=== PATIENT | female | born 1930 | race Caucasian/White ===

== ENCOUNTER 2018-08-29 16:23 | Emergency (ER) | payer MEDICARE, OTHER ==
[~2018-08-29] VITALS: Ht 162.6 cm; Wt 66.7 kg
[2018-08-29 16:23] VITALS: BP 187/87
== END 2018-08-29 17:59 | disposition home or self-care (01) ==
LOC: ER 16:32
DX: R42 Dizziness and giddiness (principal); E11.9 Type 2 diabetes mellitus without complications; I10 Essential (primary) hypertension; I25.2 Old myocardial infarction; Z88.0 Allergy status to penicillin; Z95.5 Presence of coronary angioplasty implant and graft

== ENCOUNTER 2018-09-08 16:24 | Inpatient (IN) | payer MEDICARE, OTHER ==
[~2018-09-08] VITALS: Ht 162.6 cm; Wt 65.3 kg
--- NOTE | 2018-09-08 16:36 | NUR ---
WEAKNESS X 1 WEEK, FEVER X 2 DAYS, SENT FROM DR BRUNO OFFICE FOR EVAL. SKIN WARM, DRY, INTACT. NO ACUTE DISTRESS NOTED. HOOKED TO MONITOR. AMILY AT BEDSIDE. READY FOR EVAL.
[2018-09-08] MEDS ORDERED: IV NS 0.9% 500 ML BAG IV ONE (17:00)
[2018-09-08 17:08] LABS: BASOPHILS # (AUTO) 0.1 /CMM (0.0-0.2); BASOPHILS % (AUTO) 0.6 % (0.0-2.0); EOSINOPHILS % (AUTO) 0.6 % (0.0-6.0); HEMATOCRIT 38 % (33-45); HEMOGLOBIN 12.6 g/dL (11.5-14.8); LYMPHOCYTES # (AUTO) 0.8 /CMM (0.8-4.8); LYMPHOCYTES % (AUTO) 6.1 % (20.0-44.0); MEAN CORPUSCULAR HGB CONC 33 g/dl (31.0-36.0); MEAN CORPUSCULAR VOLUME 90 fL (82-100); NEUTROPHILS # (AUTO) 10.7 /CMM (1.8-8.9); NEUTROPHILS % (AUTO) 84.7 % (43.0-81.0); PLATELET COUNT (AUTO) 271 /CMM (150-450); RED BLOOD CELL COUNT(AUTO) 4.22 MIL/uL (4.0-5.2); WHITE BLOOD COUNT (AUTO) 12.7 K/uL (4.3-11.0)
[2018-09-08 17:45] LABS: CALCIUM, SERUM 8.4 mg/dL (8.5-10.1); CARBON DIOXIDE 28 mmol/L (21-32); CHLORIDE 99 mmol/L (98-107); POTASSIUM 3.9 mmol/L (3.5-5.1); SODIUM SERUM 134 mmol/L (136-145)
[2018-09-08 17:46] LABS: BILIRUBIN,DIRECT 0.1 mg/dL (0.0-0.2); BILIRUBIN,TOTAL 0.3 mg/dL (0.2-1.0); CREATININE 1.3 mg/dL (0.6-1.3); UREA NITROGEN, BLOOD 13 mg/dL (7-18)
[2018-09-08 17:47] LABS: ALANINE AMINOTRANSFERASE 80 U/L (12-78); ALBUMIN 2.6 g/dL (3.4-5.0); ALKALINE PHOSPHATASE 321 U/L (46-116); ASPARTATE AMINOTRANSFERASE 32 U/L (15-37); TOTAL PROTEIN, SERUM 6.6 g/dL (6.4-8.2)
[2018-09-08 17:58] LABS: GLUCOSE 143 mg/dL (74-106)
--- NOTE | 2018-09-08 18:14 | NUR ---
URINE SENT TO STAT LAB
[2018-09-08 18:20] LABS: APPEARANCE,URINE Cloudy (CLEAR); BILIRUBIN,URINE Negative (NEGATIVE); BLOOD, URINE Moderate Ery/uL (NEGATIVE); COLOR,URINE Yellow (YELLOW); KETONES,URINE Negative (NEGATIVE); LEUKOCYTE ESTERASE ,URINE Small (NEGATIVE); NITRITE, URINE Positive (NEGATIVE); PROTEIN,URINE 30 mg/dl (NEGATIVE); UGLUCOSE Negative (NEGATIVE)
[2018-09-08] MEDS ORDERED: LORAZEPAM INJ 2 MG/ML VIAL ONE (18:23)
[2018-09-08] MEDS ORDERED: LORAZEPAM INJ 2 MG/ML VIAL IV ONE (18:30)
[2018-09-08 18:49] LABS: BACTERIA,URINE Many /HPF (None Seen); SQUAMOUS EPITHELIAL CELL,UR Few /HPF (None Seen); URINE AMORPHOUS URATE Few /HPF (None Seen); WBC,URINE 81-100 /HPF (0-3)
--- NOTE | 2018-09-08 19:00 | NUR ---
PT REFUSED CT AND ATIVAN. 1 MG WASTED IN OMNICELL, UNABLE TO WASTE SECOND MG IN OMNICELL. WASTE WITNESSED BY LIN BENITEZ.
[2018-09-08] MEDS ORDERED: CHOL200026 PO (19:01)
[2018-09-08] MEDS ORDERED: CYAN10009 PO (19:01)
[2018-09-08] MEDS ORDERED: GLIM1TAB PO (19:01)
[2018-09-08] MEDS ORDERED: FOLI1TAB16 PO (19:01)
[2018-09-08] MEDS ORDERED: LEVO75TA PO (19:01)
[2018-09-08] MEDS ORDERED: ASPI-1169 PO (19:01)
[2018-09-08] MEDS ORDERED: METO-357 PO (19:01)
[2018-09-08] MEDS ORDERED: CARV3.12 PO (19:01)
[2018-09-08] MEDS ORDERED: AMLO5TAB4 PO (19:01)
[2018-09-08] MEDS ORDERED: OLME20TA13 PO (19:01)
--- NOTE | 2018-09-08 19:08 | NUR ---
CALLED DIETARY TO REQUEST FOOD TRAY
--- NOTE | 2018-09-08 19:17 | NUR ---
FOOD TRAY PROVIDED TO PT
[2018-09-08] MEDS ORDERED: LEVOFLOXACIN 750 MG /D5W 150ML PIGGYBACK IV ONE (19:30)
--- NOTE | 2018-09-08 20:16 | NUR ---
REPORT GIVEN TO LIN SANCHEZ 115-2 TELE Addendum: 09/08/18 at 2040 by MAI LIN HURD
[2018-09-08] MEDS ORDERED: LEVOFLOXACIN 750 MG /D5W 150ML 150 ML IV ONE (20:22)
--- NOTE | 2018-09-08 20:33 | NUR ---
IV ABX WILL CONT TO INFUSE IN ELVIS
[2018-09-08 20:35] VITALS: BP 146/75
--- NOTE | 2018-09-08 20:39 | NUR ---
[facility]
--- NOTE | 2018-09-08 20:45 | NUR ---
DUCK OPERATOR NOTE PATIENT RECEIVED IN [facility] AT BEDSIDE. PATIENT MALAY AND MACEDONIAN SPEAKING. PATIENT DOES NOT UNDERSTAND JAPANESE. DAUGHTER TRANSLATING. PATIENT A/OX 4 WITH GENERALIZED WEAKNESS, PATIENT ABLE TO WALK TO BED WITH STANDBY ASSISTANCE. PATIENT DENIES PAIN, CHEST PAIN, SOB. LAC 18I G INFILTRATED IV REMOVED AND 22 [address] LFA [address]ED. IV ANTIBIOTIC INFUSING. PATIENT SR IN THE 80S ON THE MONITOR. PATIENT ORIENTED TO ROOM CALL LIGHT AT BEDSIDE. RN WILL CONTINUE TO MONITOR. MD NOTIFIED OF PATIENT ARRIVAL.
[2018-09-08 21:00] VITALS: BP 146/76
[2018-09-08] MEDS: ATORVASTATIN 40 MG TABLET PO SCH (21:08)
[2018-09-08] MEDS: AMLODIPINE BESYLATE 5 MG TABLET PO SCH (21:08)
[2018-09-08] MEDS ORDERED: IV NS 0.9% 1,000 ML BAG IV PRN (22:30)
[2018-09-08] MEDS ORDERED: ENOXAPARIN SODIUM 40 MG/0.4 ML DISP.SYRIN SQ SCH (22:30)
[2018-09-08] MEDS ORDERED: LOSARTAN POTASSIUM 25 MG TABLET PO PRN (22:30)
[2018-09-08] MEDS ORDERED: IV NS 0.9% 1,000 ML IV PRN (22:30)
[2018-09-08] MEDS ORDERED: METOPROLOL SUCCINATE 50 MG TAB.SR.24H PO PRN (22:30)
[2018-09-08] MEDS ORDERED: ONDANSETRON HCL/PF 4 MG/2 ML VIAL IV PRN (22:30)
[2018-09-08] MEDS ORDERED: DEXTROSE 50%-WATER 50 ML DISP.SYRIN IV PRN (23:30)
[2018-09-08 23:56] VITALS: BP 128/77
[2018-09-09] VITALS (7 sets, daily range): BP systolic 92–186; BP diastolic 53–83
[2018-09-09] MEDS: ENOXAPARIN SODIUM 30 MG/0.3 ML DISP.SYRIN SQ SCH (01:09)
[2018-09-09] MEDS ORDERED: LORAZEPAM INJ 2 MG/ML VIAL IV PRN (03:30)
[2018-09-09] MEDS: LEVOTHYROXINE SODIUM 75 MCG TABLET PO SCH (06:38)
[2018-09-09] MEDS: PANTOPRAZOLE 40 MG TABLET.DR PO SCH (06:38)
[2018-09-09] MEDS: BLOOD SUGAR DIAGNOSTIC 1 EACH STRIP IN SCH ×4 (06:38→22:09)
--- NOTE | 2018-09-09 06:56 | NUR ---
COOK SHORT ORDER NOTE NO ACUTE CHANGES THROUGHOUT THE NIGHT NO S/S OF DISTRESS. PATIENT BS 147 NO INSULIN GIVEN PT NPO D/T PROCEDURE. ENDORSED TO AM POC FOR DAVID.
--- NOTE | 2018-09-09 07:20 | NUR ---
RN OPENING NOTE RECEIVED PATIENT ASLEEP, BUT EASILY AROUSABLE. CYPRIOT/ARGENTINE SPEAKING ONLY. ON TELE MONITOR SR 80-90s. NPO AFTER BREAKFAST FOR US ABD/PELVIS LATER TODAY. WILL RESUME DIET AFTER. HAS A LEFT HAND #22 WITH NS RUNNING AT 50ML/HR. BED LOCKED AND IN LOWEST POSITON. CALL LIGHT WITHIN REACH. WILL CONTINUE TO MONITOR CLOSELY
--- NOTE | 2018-09-09 07:25 | NUR ---
SAP SECURITY ARCHITECT NOTE NO S.S OF DISTRESS. PATIENT DENIES CHEST PAIN/SOB. PATIENT NO LONGER FEBRILE. PATIENT STABLE. POC ENDORSED TO AM FOR DAVID. HR IN 80'S SR. SAFETY PRECAUTIONS IN PLACE
[2018-09-09 07:34] LABS: BASOPHILS % (AUTO) 0.2 % (0.0-2.0); HEMATOCRIT 35 % (33-45); HEMOGLOBIN 11.7 g/dL (11.5-14.8); LYMPHOCYTES # (AUTO) 0.4 /CMM (0.8-4.8); LYMPHOCYTES % (AUTO) 1.8 % (20.0-44.0); MEAN CORPUSCULAR HGB CONC 34 g/dl (31.0-36.0); MEAN CORPUSCULAR VOLUME 89 fL (82-100); MONOCYTES # (AUTO) 1.3 /CMM (0.1-1.30); MONOCYTES % (AUTO) 5.7 % (2.0-12.0); NEUTROPHILS # (AUTO) 21.1 /CMM (1.8-8.9); NEUTROPHILS % (AUTO) 92.3 % (43.0-81.0); PLATELET COUNT (AUTO) 210 /CMM (150-450); RED BLOOD CELL COUNT(AUTO) 3.88 MIL/uL (4.0-5.2); WHITE BLOOD COUNT (AUTO) 22.8 K/uL (4.3-11.0)
[2018-09-09 07:49] LABS: ALANINE AMINOTRANSFERASE 68 U/L (12-78); ALBUMIN 2.2 g/dL (3.4-5.0); ALKALINE PHOSPHATASE 294 U/L (46-116); ASPARTATE AMINOTRANSFERASE 30 U/L (15-37); BILIRUBIN,TOTAL 0.9 mg/dL (0.2-1.0); CALCIUM, SERUM 8.2 mg/dL (8.5-10.1); CARBON DIOXIDE 26 mmol/L (21-32); CHLORIDE 103 mmol/L (98-107); CREATININE 1.1 mg/dL (0.6-1.3); GLUCOSE 150 mg/dL (74-106); POTASSIUM 3.6 mmol/L (3.5-5.1); SODIUM SERUM 140 mmol/L (136-145); TOTAL PROTEIN, SERUM 5.9 g/dL (6.4-8.2); UREA NITROGEN, BLOOD 13 mg/dL (7-18)
[2018-09-09] MEDS: ASPIRIN 81 MG TAB.CHEW PO SCH (08:05)
[2018-09-09] MEDS: CARVEDILOL 3.125 MG TABLET PO SCH ×2 (08:05→16:53)
--- NOTE | 2018-09-09 08:06 | NUR ---
RN NOTE ASPIRIN AND COREG WERE NOT ADMINISTERED. PATIENT NPO BEFORE ULTRASOUND OF ABDOMEN/PELVIS. PATIENT'S BP: 117/59 HR: 78.
[2018-09-09] MEDS ORDERED: ENOXAPARIN SODIUM 40 MG/0.4 ML DISP.SYRIN SQ SCH (09:00)
--- NOTE | 2018-09-09 09:49 | NUR ---
RN NOTE US TECH CAME IN AT 0845. US OF ABDOMEN AND PELVIS WAS DONE. PATIENT ALERT AND ORIENTED. ORDERED BREAKFAST, CCHO AND 2G NA. FAMILY ON BEDSIDE
[2018-09-09] MEDS: INSULIN REGULAR, HUMAN 100 UNIT/ML 3 ML VIAL SQ PRN ×3 (12:58→22:29)
[2018-09-09] MEDS: SOD FERRIC GLUC 125 MG in IV NS 0.9% 100 ML IV SCH (14:17)
[2018-09-09] MEDS: AMLODIPINE BESYLATE 5 MG TABLET PO SCH (17:55)
--- NOTE | 2018-09-09 17:56 | NUR ---
RN NOTE DID NOT ADMINISTER COREG AT 1700 AND NORVASC AT 1800. PATIENT'S BLOOD PRESSURE IS BELOW THE BASELINE. FAMILY ON BEDSIDE AWARE, AND AGREED.
--- NOTE | 2018-09-09 18:53 | NUR ---
RN CLOSING NOTE PATIENT AWAKE AND ALERT, BOLIVIAN SPEAKING ONLY. NO FEVER DURING MY SHIFT. ALL NEEDS MET. STABLE. NO PAIN OR SOB. ON 3L NC. HAS LEFT HAND #22 SALINE LOCKED. BP MEDS NOT ADMINISTERED. WILL ENDORSE TO NOC SHIFT RN
--- NOTE | 2018-09-09 19:23 | NUR ---
CLINICIAN ONCOLOGY NOTE PATIENT REPORT GIVEN BEDSIDE. PATIENT A/O X4. PATIENT POLISH AND LIBERIAN SPEAKING. PATIENT HAS NO C/O DISTRESS OR DISCOMFORT. PATIENT ON 2L 02 NO S/S OF RESP DISTRESS. NO INCREASED WOB/SOB/ NOTED. PATIENT SR ON THE MONITOR. CALL LIGHT AT BEDSIDE. SAFETY PRECAUTIONS IN PLACE. RN WILL CONTINUE TO MONITOR.
[2018-09-09] MEDS: ACETAMINOPHEN 325 MG TABLET PO PRN (19:51)
[2018-09-09] MEDS ORDERED: LEVOFLOXACIN 750 MG /D5W 150ML 750 MG in PREMIX 1 EA IV SCH (20:00)
[2018-09-09] MEDS ORDERED: LEVOFLOXACIN 250 MG /D5W 50 ML 250 MG in PREMIX 1 EA IV SCH (20:00)
--- NOTE | 2018-09-09 20:44 | NUR ---
IT SOFTWARE DEVELOPER NOTE PATIENT NOTED TO BE FEBRILE 102.4. TYLENOL GIVEN AND COOLING MEASURES IN PLACE AND TEMP REASSESSED. TEMPERATURE REDUCED TO 99.9. PATIENT HYPERTENSIVE, AFTER USING BR TO URINATE BP DROPPED TO 156/75.
[2018-09-09] MEDS: ATORVASTATIN 40 MG TABLET PO SCH (22:09)
--- NOTE | 2018-09-09 22:19 | NUR ---
COMPOUNDER NOTE PATIENT RECEIVING NEURO CONSULT.
[2018-09-10] VITALS: BP 104/55
[2018-09-10] MEDS: ENOXAPARIN SODIUM 30 MG/0.3 ML DISP.SYRIN SQ SCH (00:44)
[2018-09-10 04:00] VITALS: BP 130/68
[2018-09-10] MEDS: BLOOD SUGAR DIAGNOSTIC 1 EACH STRIP IN SCH ×4 (06:30→21:26)
[2018-09-10] MEDS: PANTOPRAZOLE 40 MG TABLET.DR PO SCH (06:30)
[2018-09-10] MEDS: LEVOTHYROXINE SODIUM 75 MCG TABLET PO SCH (06:30)
[2018-09-10 07:47] LABS: BASOPHILS # (AUTO) 0.1 /CMM (0.0-0.2); BASOPHILS % (AUTO) 0.4 % (0.0-2.0); EOSINOPHILS % (AUTO) 0.8 % (0.0-6.0); HEMATOCRIT 35 % (33-45); HEMOGLOBIN 11.5 g/dL (11.5-14.8); LYMPHOCYTES # (AUTO) 0.7 /CMM (0.8-4.8); LYMPHOCYTES % (AUTO) 5.3 % (20.0-44.0); MEAN CORPUSCULAR HGB CONC 33 g/dl (31.0-36.0); MEAN CORPUSCULAR VOLUME 90 fL (82-100); MONOCYTES # (AUTO) 1.1 /CMM (0.1-1.30); MONOCYTES % (AUTO) 8.4 % (2.0-12.0); NEUTROPHILS # (AUTO) 11.2 /CMM (1.8-8.9); NEUTROPHILS % (AUTO) 85.1 % (43.0-81.0); PLATELET COUNT (AUTO) 197 /CMM (150-450); RED BLOOD CELL COUNT(AUTO) 3.85 MIL/uL (4.0-5.2); WHITE BLOOD COUNT (AUTO) 13.2 K/uL (4.3-11.0)
[2018-09-10 07:58] LABS: ALANINE AMINOTRANSFERASE 64 U/L (12-78); ALBUMIN 2.2 g/dL (3.4-5.0); ALKALINE PHOSPHATASE 272 U/L (46-116); ASPARTATE AMINOTRANSFERASE 34 U/L (15-37); BILIRUBIN,TOTAL 0.6 mg/dL (0.2-1.0); CALCIUM, SERUM 8.1 mg/dL (8.5-10.1); CARBON DIOXIDE 26 mmol/L (21-32); CHLORIDE 104 mmol/L (98-107); GLUCOSE 138 mg/dL (74-106); MAGNESIUM 2.1 mg/dL (1.8-2.4); PHOSPHORUS 2.5 mg/dL (2.5-4.9); POTASSIUM 3.8 mmol/L (3.5-5.1); SODIUM SERUM 139 mmol/L (136-145); TOTAL PROTEIN, SERUM 5.8 g/dL (6.4-8.2); UREA NITROGEN, BLOOD 13 mg/dL (7-18)
[2018-09-10 08:00] VITALS: BP 141/66
[2018-09-10] MEDS: ASPIRIN 81 MG TAB.CHEW PO SCH (08:44)
[2018-09-10] MEDS: CARVEDILOL 3.125 MG TABLET PO SCH ×2 (08:44→17:00)
--- NOTE | 2018-09-10 09:28 | NUR ---
RN NOTE PT REFUSED MRI BRAIN AND EEG TO BE DONE. BENEFITS EXPLAINED, PT STILL REFUSED, PT IS AFRAID OF MRI MACHINE. MD AT BEDSIDE AWARE. DAUGHTER AT BEDSIDE AWARE.
[2018-09-10 12:00] VITALS: BP 119/53
--- NOTE | 2018-09-10 12:08 | NUR ---
PATIENT IS REFUSING MRI, NURSE JAIME IS AWARE.
[2018-09-10] MEDS: INSULIN REGULAR, HUMAN 100 UNIT/ML 3 ML VIAL SQ PRN ×2 (12:44→21:34)
--- NOTE | 2018-09-10 14:52 | NUR ---
RN NOTE SPOKE WITH ADELAIDE AT [facility] [phone] DARLING'S REQUEST TO CHECK UR CX SENSITIVITY TO [facility], PER ADELAIDE THEY WILL DO THE TEST AND REPORT SHOULD BE DONE BY TOMORROW 09/10/18. WILL NOTIFY
[2018-09-10] MEDS: SOD FERRIC GLUC 125 MG in IV NS 0.9% 100 ML IV SCH (14:55)
[2018-09-10 16:00] VITALS: BP 107/71
[2018-09-10] MEDS: MEROPENEM 1 G in IV NS 0.9% 100 ML IV SCH (16:59)
[2018-09-10] MEDS: AMLODIPINE BESYLATE 5 MG TABLET PO SCH (17:31)
[2018-09-10] MEDS: ACETAMINOPHEN 325 MG TABLET PO PRN (17:33)
--- NOTE | 2018-09-10 19:35 | NUR ---
ON SITE SERVICES SPECIALIST OPENING NOTES Received patient A/O x4, Zimbabwean/Lao speaking only, registered nurse hh case manager used. Patient on O2 inhalation via NC @ 2LPM, no SOB/respiratory distress noted. On tele monitor with SR noted. Ambulatory with steady gait noted. Patient aferbile, continent, BRP. Patient denied discomfort at this time. Kept bed low and locked, siderail x2 up, call light within easy reach. Will continue to monitor accordingly.
[2018-09-10 20:00] VITALS: BP 101/59
[2018-09-10] MEDS: ATORVASTATIN 40 MG TABLET PO SCH (21:27)
[2018-09-11] VITALS: BP 142/70
[2018-09-11] MEDS: ACETAMINOPHEN 325 MG TABLET PO PRN ×2 (00:12→15:18)
[2018-09-11] MEDS: ENOXAPARIN SODIUM 30 MG/0.3 ML DISP.SYRIN SQ SCH (00:14)
[2018-09-11] MEDS: MEROPENEM 1 G in IV NS 0.9% 100 ML IV SCH (03:46)
[2018-09-11 04:00] VITALS: BP 140/63
--- NOTE | 2018-09-11 06:23 | NUR ---
COLLISION MECHANIC CLOSING NOTES Patient noted with uninterrupted sleep, still asleep at this time. On O2 inhalation via NC @ 2LPM, saturating well, no SOB/respiratory distress noted. All nursing needs attended. Kept clean, dry and comfortable with call light within easy reach. No new unusualities noted. Afebrile the whole shift. Endorsed to the next shift.
[2018-09-11] MEDS: BLOOD SUGAR DIAGNOSTIC 1 EACH STRIP IN SCH ×4 (06:42→21:15)
[2018-09-11] MEDS: INSULIN REGULAR, HUMAN 100 UNIT/ML 3 ML VIAL SQ PRN ×4 (06:45→21:32)
[2018-09-11 08:00] VITALS: BP 145/72
[2018-09-11] MEDS: CARVEDILOL 3.125 MG TABLET PO SCH ×2 (08:02→17:50)
[2018-09-11] MEDS: PANTOPRAZOLE 40 MG TABLET.DR PO SCH (08:02)
[2018-09-11] MEDS: ASPIRIN 81 MG TAB.CHEW PO SCH (08:02)
[2018-09-11] MEDS: LEVOTHYROXINE SODIUM 75 MCG TABLET PO SCH (08:02)
[2018-09-11 09:01] LABS: BASOPHILS # (AUTO) 0.1 /CMM (0.0-0.2); BASOPHILS % (AUTO) 0.4 % (0.0-2.0); EOSINOPHILS % (AUTO) 1.3 % (0.0-6.0); HEMATOCRIT 35 % (33-45); HEMOGLOBIN 11.5 g/dL (11.5-14.8); LYMPHOCYTES # (AUTO) 0.7 /CMM (0.8-4.8); LYMPHOCYTES % (AUTO) 5.2 % (20.0-44.0); MEAN CORPUSCULAR HGB CONC 33 g/dl (31.0-36.0); MEAN CORPUSCULAR VOLUME 90 fL (82-100); MONOCYTES # (AUTO) 1.1 /CMM (0.1-1.30); NEUTROPHILS # (AUTO) 11.6 /CMM (1.8-8.9); NEUTROPHILS % (AUTO) 85.1 % (43.0-81.0); PLATELET COUNT (AUTO) 240 /CMM (150-450); RED BLOOD CELL COUNT(AUTO) 3.86 MIL/uL (4.0-5.2); WHITE BLOOD COUNT (AUTO) 13.6 K/uL (4.3-11.0)
[2018-09-11 09:32] LABS: ALANINE AMINOTRANSFERASE 64 U/L (12-78); ALBUMIN 2.3 g/dL (3.4-5.0); ALKALINE PHOSPHATASE 271 U/L (46-116); ASPARTATE AMINOTRANSFERASE 29 U/L (15-37); BILIRUBIN,TOTAL 0.5 mg/dL (0.2-1.0); CALCIUM, SERUM 8.4 mg/dL (8.5-10.1); CARBON DIOXIDE 27 mmol/L (21-32); CHLORIDE 104 mmol/L (98-107); CREATININE 1.1 mg/dL (0.6-1.3); GLUCOSE 227 mg/dL (74-106); MAGNESIUM 2.2 mg/dL (1.8-2.4); PHOSPHORUS 2.6 mg/dL (2.5-4.9); POTASSIUM 3.9 mmol/L (3.5-5.1); SODIUM SERUM 138 mmol/L (136-145); TOTAL PROTEIN, SERUM 6.1 g/dL (6.4-8.2); UREA NITROGEN, BLOOD 13 mg/dL (7-18)
[2018-09-11] MEDS ORDERED: CEFTRIAXONE 1 G in IV D5W 50 ML IV SCH (14:00)
[2018-09-11] MEDS: SOD FERRIC GLUC 125 MG in IV NS 0.9% 100 ML IV SCH (14:51)
[2018-09-11] MEDS: CEFTRIAXONE 1 G in IV D5W 50 ML IV SCH (15:12)
[2018-09-11 16:00] VITALS: BP 127/62
[2018-09-11] MEDS: AMLODIPINE BESYLATE 5 MG TABLET PO SCH (17:49)
--- NOTE | 2018-09-11 19:40 | NUR ---
RN OPENING NOTES RECEIVED REPORT FROM DAYSHIFT RN. FOUND Pt AWAKE, RESTING IN BED. NO S/S OF ACUTE DISTRESS OR SOB NOTED. Pt IS A/OX4, PASHTO SPEAKING, CAN UNDERSTAND SOME PASHTO. NO C/O PAIN AT THIS TIME. Pt HAS BRP, IS AMB. IV ACCES ON [facility] #22G, SL. POSSIBLE D/C HOME TOMORROW. SAFETY MEASURES IN PLACE. BED LOW, LOCKED, HOB ELEVATED, SIDE RAILS UP, CALL LIGHT AND BEDSIDE TABLE WITHIN REACH. WILL CONTINUE TO MONITOR Pt's CONDITION AND SAFETY THROUGHOUT THE NIGHT.
[2018-09-11] MEDS ORDERED: CEFTRIAXONE 1 G VIAL IM SCH (21:00)
[2018-09-11] MEDS: ATORVASTATIN 40 MG TABLET PO SCH (21:16)
[2018-09-12] VITALS: BP 127/53
[2018-09-12] MEDS: ENOXAPARIN SODIUM 30 MG/0.3 ML DISP.SYRIN SQ SCH ×2 (00:45→23:42)
[2018-09-12] MEDS: CEFTRIAXONE 1 G in IV D5W 50 ML IV SCH ×2 (01:08→13:49)
--- NOTE | 2018-09-12 06:51 | NUR ---
RN CLOSING NOTES NO SIGNIFICANT CHANGES IN Pt's CONDITION. Pt REMAINS STABLE AT THIS TIME. NO S/S OF ACUTE DISTRESS OR SOB NOTED DURING THE NIGHT. Pt IS RESTING IN BED. RESPIRATIONS EVEN AND UNLABORED. SAFETY MEASURES IN PLACE. BED LOW, LOCKED, HOB ELEVATED, SIDE RAILS UP, CALL LIGHT AND BEDSIDE TABLE WITHIN REACH. WILL ENDORSE TO DAYSHIFT RN FOR Pt's DAVID.
--- NOTE | 2018-09-12 07:20 | NUR ---
RN OPENING NOTE RECEIVED PATIENT IN BED ASLEEP BUT EASILY AROUSABLE. MALAY SPEAKING ONLY. UNDERSTANDS BASIC SWEDISH. NO COMPLAINS OF ANY PAIN OR SOB. HAS A LEFT HAND #22 SALINE LOCKED. BED LOCKED AND IN LOWEST POSITION. CALL LIGHT WITHIN REACH. WILL CONTINUE TO MONITOR CLOSELY
[2018-09-12] MEDS: BLOOD SUGAR DIAGNOSTIC 1 EACH STRIP IN SCH ×4 (08:37→21:41)
[2018-09-12] MEDS: LEVOTHYROXINE SODIUM 75 MCG TABLET PO SCH (08:39)
[2018-09-12] MEDS: CARVEDILOL 3.125 MG TABLET PO SCH ×2 (08:39→17:12)
[2018-09-12] MEDS: ASPIRIN 81 MG TAB.CHEW PO SCH (08:39)
[2018-09-12] MEDS: PANTOPRAZOLE 40 MG TABLET.DR PO SCH (08:39)
[2018-09-12 09:00] VITALS: BP 142/74
--- NOTE | 2018-09-12 14:08 | NUR ---
RN NOTE PATIENT AMBULATORY, ALWAYS WALKING BY THE HALLWAY. FAMILY ON BEDSIDE ASSISTING. THE DAUGHTER MADE CLEAR THAT NO EEG, NO MRI NOR ANY HEAD TESTS FOR HER MOM. DR WATERS CAME IN TO SEE THE PATIENT. ORDERED REGULAR INSULIN FROM THE PHARMACY
--- NOTE | 2018-09-12 14:10 | NUR ---
RN NOTE PATIENT ATE LATE FOR LUNCH, WILL GIVE INSULIN NOW.
--- NOTE | 2018-09-12 14:15 | NUR ---
RN NOTE PATIENT ATE VERY LITTLE, WILL HOLD INSULIN.
[2018-09-12 16:00] VITALS: BP 148/77
--- NOTE | 2018-09-12 17:23 | NUR ---
RN NOTE PATIENT'S BLOOD GLUCOSE IS 163.
[2018-09-12] MEDS: AMLODIPINE BESYLATE 5 MG TABLET PO SCH (17:50)
[2018-09-12] MEDS: INSULIN REGULAR, HUMAN 100 UNIT/ML 3 ML VIAL SQ PRN ×2 (17:52→21:48)
--- NOTE | 2018-09-12 18:51 | NUR ---
RN CLOSING NOTE PATIENT STABLE, NO COMPLAINS OF PAIN OR SOB AT THIS TIME. VS HAS BEEN STABLE. BP MEDS GIVEN. INSULIN COVERAGE HAS BEEN GIVEN WELL. PATIENT ALERT AND ORIENTED, FILIPINO SPEAKING ONLY. ALL MEDS ARE GIVEN, ALL NEEDS ARE MET. STABLE WHEN AMBULATORY. PER FAMILY, NO EEG, NO MRI. WILL ENDORSE TO NOC SHIFT RN FOR CONT OF CARE
--- NOTE | 2018-09-12 19:23 | NUR ---
MS RN OPENING NOTES: RECEIVED PT ON ROOM AIR AND IS TOLERATING WELL. PT SITTING UP IN CHAIR AT THIS TIME. NO SOB NOTED. NO S/S OF DISTRESS. DTR AT BEDSIDE. PT A/OX4 BUT IS NIGERIAN SPEAKING ONLY. PT HAS IV ON L HAND #22G AND IS PATENT AND INTACT. CURRENTLY H/L. BED KEPT IN LOW, LOCKED POSITION, AND SIDE RAILS X 2UP. WILL CONTINUE TO MONITOR PT.
[2018-09-12 20:00] VITALS: BP 146/76
[2018-09-12] MEDS: ATORVASTATIN 40 MG TABLET PO SCH (21:41)
--- NOTE | 2018-09-12 21:50 | NUR ---
MS RN NOTES: BLOOD SUGAR THIS PM WAS 143. 2 UNITS OF INSULIN WAS ADMINISTERED. PT HAS APPLES AT BEDSIDE AND WAS EDUCATED TO HAVE A SNACK.
[2018-09-13] MEDS: CEFTRIAXONE 1 G in IV D5W 50 ML IV SCH ×2 (01:01→14:58)
[2018-09-13 04:00] VITALS: BP 145/67
[2018-09-13] MEDS: ACETAMINOPHEN 325 MG TABLET PO PRN ×2 (04:34→20:23)
--- NOTE | 2018-09-13 04:39 | NUR ---
MS CEBALLOS NOTES: TYLENOL 650MG PO WAS ADMINISTERED FOR TEMP OF 100.3 ; WILL CONTINUE TO MONITOR. Addendum: 09/13/18 at 0441 by RIOS KEARNEY RN 100.4
[2018-09-13] MEDS: BLOOD SUGAR DIAGNOSTIC 1 EACH STRIP IN SCH ×4 (06:33→22:12)
[2018-09-13 06:54] LABS: APPEARANCE,URINE CLEAR (CLEAR); BILIRUBIN,URINE NEGATIVE (NEGATIVE); BLOOD, URINE 1+ Ery/uL (NEGATIVE); COLOR,URINE YELLOW (YELLOW); KETONES,URINE NEGATIVE (NEGATIVE); LEUKOCYTE ESTERASE ,URINE 1+ (NEGATIVE); NITRITE, URINE NEGATIVE (NEGATIVE); PROTEIN,URINE NEGATIVE (NEGATIVE); UGLUCOSE NEGATIVE (NEGATIVE); UROBILINOGEN,URINE 0.2 EU/dL (0.2)
--- NOTE | 2018-09-13 06:54 | NUR ---
MS CEBALLOS CLOSING NOTES: ALL NEEDS WERE ATTENDED AND ANTICIPATED FOR. PT KEPT CLEAN, DRY, AND COMFORTABLE. PT ON ROOM AIR AND TOLERATING WELL. IV REMAINS INTACT. CURRENTLY H/L. PT HAS BEEN FLUSHED. BED KEPT IN LOW, LOCKED POSITION, AND SIDE RAILS X 2UP. WILL ENDORSE TO AM NURSE FOR DAVID. Addendum: 09/13/18 at 0707 by RIOS KEARNEY RN ENDORSED TO AM NURSE THAT 2 UNITS OF INSULIN IS TO BE ADMINISTERED.
[2018-09-13 07:07] LABS: BACTERIA,URINE Few /HPF (None Seen)
[2018-09-13 07:19] LABS: BASOPHILS % (AUTO) 0.4 % (0.0-2.0); EOSINOPHILS % (AUTO) 0.8 % (0.0-6.0); HEMATOCRIT 33 % (33-45); HEMOGLOBIN 10.9 g/dL (11.5-14.8); LYMPHOCYTES % (AUTO) 9.3 % (20.0-44.0); MEAN CORPUSCULAR HGB CONC 34 g/dl (31.0-36.0); MEAN CORPUSCULAR VOLUME 89 fL (82-100); MONOCYTES % (AUTO) 10.4 % (2.0-12.0); NEUTROPHILS % (AUTO) 79.1 % (43.0-81.0); PLATELET COUNT (AUTO) 253 /CMM (150-450); RED BLOOD CELL COUNT(AUTO) 3.66 MIL/uL (4.0-5.2); WHITE BLOOD COUNT (AUTO) 11.9 K/uL (4.3-11.0)
[2018-09-13 07:20] LABS: LYMPHOCYTES # (AUTO) 1.1 /CMM (0.8-4.8); MONOCYTES # (AUTO) 1.2 /CMM (0.1-1.30); NEUTROPHILS # (AUTO) 9.4 /CMM (1.8-8.9)
--- NOTE | 2018-09-13 07:30 | NUR ---
m/s locum tenens: initial assessment received pt in bed awake, a/ox4; martiniquais/tongan speaking only. no c/o pain or any discomfort. instructed to call for assistance. will continue to monitor.
[2018-09-13] MEDS: INSULIN REGULAR, HUMAN 100 UNIT/ML 3 ML VIAL SQ PRN ×4 (07:38→22:18)
[2018-09-13 07:42] LABS: ALANINE AMINOTRANSFERASE 58 U/L (12-78); ALBUMIN 2.2 g/dL (3.4-5.0); ALKALINE PHOSPHATASE 242 U/L (46-116); ASPARTATE AMINOTRANSFERASE 29 U/L (15-37); BILIRUBIN,TOTAL 0.4 mg/dL (0.2-1.0); CALCIUM, SERUM 8.2 mg/dL (8.5-10.1); CARBON DIOXIDE 28 mmol/L (21-32); CHLORIDE 103 mmol/L (98-107); CREATININE 1.1 mg/dL (0.6-1.3); GLUCOSE 155 mg/dL (74-106); MAGNESIUM 2.4 mg/dL (1.8-2.4); PHOSPHORUS 2.9 mg/dL (2.5-4.9); POTASSIUM 4.1 mmol/L (3.5-5.1); SODIUM SERUM 140 mmol/L (136-145); TOTAL PROTEIN, SERUM 5.8 g/dL (6.4-8.2); UREA NITROGEN, BLOOD 13 mg/dL (7-18)
[2018-09-13] MEDS: PANTOPRAZOLE 40 MG TABLET.DR PO SCH (07:45)
[2018-09-13] MEDS: LEVOTHYROXINE SODIUM 75 MCG TABLET PO SCH (07:45)
[2018-09-13 08:07] VITALS: BP 136/68
[2018-09-13] MEDS: CARVEDILOL 3.125 MG TABLET PO SCH ×2 (08:32→17:03)
[2018-09-13] MEDS: ASPIRIN 81 MG TAB.CHEW PO SCH (08:32)
--- NOTE | 2018-09-13 09:00 | NUR ---
m/s weatherization technician: md visit seen and examined by dr. christina. daughter at bedside. md updated pt and daughter. pt for urologist consult re: kidney stone per md.
--- NOTE | 2018-09-13 09:30 | NUR ---
m/s handicrafts teacher: urologist consult seen by dr. baum with order. order acknowledged.
--- NOTE | 2018-09-13 10:05 | NUR ---
WOUND CARE CONSULT: PT PRESENTS AMBULATORY AND CONTINENT WITH DRY ESCHARS TO LEFT FOOT AND DRY SCAB TO NECK, PRESENT ON ADMISSION. PT REPORTS THAT LEFT FOOT WAS PREVIOUSLY TREATED WITH SSD AND DENIES ANY DISCOMFORT AT THIS TIME. NO DRAINAGE NOTED. DEFER TO MD. WILL SEE PRN. FUNK IN AGREEMENT WITH PLAN OF CARE. CURRENT DOLLY SCORE IS 20. Addendum: 09/13/18 at 1012 by ALEX BROCK WNDNU Amended: Links added.
--- NOTE | 2018-09-13 11:40 | NUR ---
m/s program administrator: notes pt taken for ct abdomen via w/c at this time.
[2018-09-13 11:53] VITALS: BP 131/69
--- NOTE | 2018-09-13 11:55 | NUR ---
m/s account services specialist: notes pt back from ct abdomen. instructed to call for assistance. will continue to monitor.
--- NOTE | 2018-09-13 13:54 | NUR ---
m/s bench hand machine: notes ct abdomen resulted. dr. baum notified, made aware, and faxed result to [phone] as requested.
--- NOTE | 2018-09-13 15:25 | NUR ---
m/s bung dropper: cardio f/u seen and examined by dr. hernandez at this time. daughter at bedside.
[2018-09-13 15:58] VITALS: BP 116/67
[2018-09-13] MEDS: AMLODIPINE BESYLATE 5 MG TABLET PO SCH (17:01)
--- NOTE | 2018-09-13 18:10 | NUR ---
m/s complex manager: notes up in chair at this time. daughter at bedside. no c/o pain or any discomfort. instructed to call for assistance. in no apparent distress noted. will continue to monitor.
[2018-09-13 20:00] VITALS: BP 138/55
[2018-09-13] MEDS: ATORVASTATIN 40 MG TABLET PO SCH (22:11)
[2018-09-14] MEDS: ENOXAPARIN SODIUM 30 MG/0.3 ML DISP.SYRIN SQ SCH (00:36)
[2018-09-14] MEDS: CEFTRIAXONE 1 G in IV D5W 50 ML IV SCH (02:51)
[2018-09-14 04:00] VITALS: BP 138/64
--- NOTE | 2018-09-14 07:57 | NUR ---
MS RN NOTE RECEIVED PATIENT IN BED , ALERT ORIENTED ,SPEAKS KYRGYZ , NO SOB NOTED RESPIRATION EVEN AND UNLABORED , ABLE TO AMBULATE TO BR SELF , RT FA HL INTACT , BED IN LOWEST AND LOCKED POSITION , CALL LIGHT WITHIN REACH , PLAN OF CARE DISCUSSED WITH PATIENT, WILL CONT TO MONITOR CLOSELY
[2018-09-14 08:00] VITALS: BP 159/78
[2018-09-14] MEDS: ASPIRIN 81 MG TAB.CHEW PO SCH (08:41)
[2018-09-14] MEDS: PANTOPRAZOLE 40 MG TABLET.DR PO SCH (08:42)
[2018-09-14] MEDS: CARVEDILOL 3.125 MG TABLET PO SCH ×2 (08:42→16:19)
[2018-09-14] MEDS: LEVOTHYROXINE SODIUM 75 MCG TABLET PO SCH (08:42)
[2018-09-14] MEDS: BLOOD SUGAR DIAGNOSTIC 1 EACH STRIP IN SCH ×4 (08:45→21:00)
--- NOTE | 2018-09-14 08:47 | NUR ---
MS RN NOTE CONSENT FOR NM KIDNEY FUNCTION OBTAINED, SIGNED BY PATIENT
--- NOTE | 2018-09-14 13:00 | NUR ---
MS RN NOTE BLOOD SUGAR 156 MG\ DL ,REFUSED COVERAGE EXPLAINED OF IMPORTANCE ,STILL REFUSED .WILL CONT TO MONITOR CLOSELY
--- NOTE | 2018-09-14 15:55 | NUR ---
radio television technical director note nm kidney function done , all needs attended ,not in distress call light within reach
[2018-09-14 16:00] VITALS: BP 112/54
[2018-09-14] MEDS: AMLODIPINE BESYLATE 5 MG TABLET PO SCH (17:10)
--- NOTE | 2018-09-14 17:12 | NUR ---
ms rn ote blood sugar 202 mg\ dl refused coverage with insulin , emplaned of importance of insulin coverage ,still refusing will cont to monitor closely
--- NOTE | 2018-09-14 18:54 | NUR ---
ms rn note family at bedside, all needs attended ,not in distress
--- NOTE | 2018-09-14 19:00 | NUR ---
RN M/S NOTE PATIENT IS AOX4, SPEECH CLEAR, VIETNAMESE SPEAKING, FAMILY AT BEDSIDE, NO S/SX OF CARDIAC OR RESPIRATORY DISTRESS, DENIES PAIN, ON ROOM AIR, RFA #22G SL, PATENT FLUSHING WELL, SITE IS CLEAN AND DRY, SAFETY MAINTAINED AT ALL TIMES, BED IN LOW LOCKED POSITION CALL LIGHT WITHIN REACH WILL CONTINUE TO MONITOR FOR ANY CHANGES IN CONDITION.
[2018-09-14 20:00] VITALS: BP 141/68
[2018-09-14] MEDS: ACETAMINOPHEN 325 MG TABLET PO PRN (20:03)
--- NOTE | 2018-09-14 20:08 | NUR ---
RN M/S NOTE PT GIVEN TYLENOL 650MG PO FOR TEMPERATURE 99.5
[2018-09-14] MEDS: ATORVASTATIN 40 MG TABLET PO SCH (21:00)
[2018-09-14] MEDS: INSULIN REGULAR, HUMAN 100 UNIT/ML 3 ML VIAL SQ PRN (21:05)
--- NOTE | 2018-09-14 21:05 | NUR ---
rn m/s note pt refusing sliding scale coverage for bs 197, denies s/sx of hyperglycemia, educated on risks and benefits, will continue to monitor for changes.
[2018-09-15] MEDS: ENOXAPARIN SODIUM 30 MG/0.3 ML DISP.SYRIN SQ SCH ×2 (00:23→23:36)
[2018-09-15 04:00] VITALS: BP 151/64
[2018-09-15 07:07] LABS: BASOPHILS % (AUTO) 0.3 % (0.0-2.0); EOSINOPHILS % (AUTO) 1.2 % (0.0-6.0); HEMATOCRIT 34 % (33-45); HEMOGLOBIN 11.5 g/dL (11.5-14.8); LYMPHOCYTES # (AUTO) 0.8 /CMM (0.8-4.8); LYMPHOCYTES % (AUTO) 6.3 % (20.0-44.0); MEAN CORPUSCULAR HGB CONC 34 g/dl (31.0-36.0); MEAN CORPUSCULAR VOLUME 89 fL (82-100); MONOCYTES % (AUTO) 7.9 % (2.0-12.0); NEUTROPHILS # (AUTO) 11.1 /CMM (1.8-8.9); NEUTROPHILS % (AUTO) 84.3 % (43.0-81.0); PLATELET COUNT (AUTO) 311 /CMM (150-450); RED BLOOD CELL COUNT(AUTO) 3.84 MIL/uL (4.0-5.2); WHITE BLOOD COUNT (AUTO) 13.2 K/uL (4.3-11.0)
--- NOTE | 2018-09-15 07:10 | NUR ---
MS RN OPENING NOTE PATIENT IS AOX4, SPEECH CLEAR, SALVADOREAN SPEAKING, NO S/SX OF CARDIAC OR RESPIRATORY DISTRESS, DENIES PAIN, ON ROOM AIR, RFA #22G SL, PATENT FLUSHING WELL, SITE IS CLEAN AND DRY, SAFETY MEASURES IN PLACE, BED IN LOW LOCKED POSITION, CALL LIGHT WITHIN REACH WILL CONTINUE TO MONITOR FOR ANY CHANGES IN CONDITION.
[2018-09-15 07:23] LABS: ALANINE AMINOTRANSFERASE 62 U/L (12-78); ALBUMIN 2.4 g/dL (3.4-5.0); ALKALINE PHOSPHATASE 239 U/L (46-116); ASPARTATE AMINOTRANSFERASE 22 U/L (15-37); BILIRUBIN,TOTAL 0.5 mg/dL (0.2-1.0); CALCIUM, SERUM 8.5 mg/dL (8.5-10.1); CARBON DIOXIDE 30 mmol/L (21-32); CHLORIDE 102 mmol/L (98-107); GLUCOSE 160 mg/dL (74-106); POTASSIUM 4.3 mmol/L (3.5-5.1); SODIUM SERUM 139 mmol/L (136-145); TOTAL PROTEIN, SERUM 6.2 g/dL (6.4-8.2); UREA NITROGEN, BLOOD 13 mg/dL (7-18)
[2018-09-15 08:00] VITALS: BP_SYST 120; BP_SYST 159; BP_DIAS 51; BP_DIAS 78
--- NOTE | 2018-09-15 08:00 | NUR ---
MS RN NOTES PT REFUSED INSULIN
[2018-09-15] MEDS: BLOOD SUGAR DIAGNOSTIC 1 EACH STRIP IN SCH ×4 (08:05→22:31)
[2018-09-15] MEDS: PANTOPRAZOLE 40 MG TABLET.DR PO SCH (09:27)
[2018-09-15] MEDS: CARVEDILOL 3.125 MG TABLET PO SCH ×2 (09:27→17:48)
[2018-09-15] MEDS: LEVOTHYROXINE SODIUM 75 MCG TABLET PO SCH (09:27)
[2018-09-15] MEDS: ACETAMINOPHEN 325 MG TABLET PO PRN (09:28)
[2018-09-15] MEDS: CEFTRIAXONE 1 G in IV D5W 50 ML IV SCH (09:29)
--- NOTE | 2018-09-15 11:36 | NUR ---
MS RN NOTES PT REFUSED INSULIN
[2018-09-15 16:00] VITALS: BP_SYST 112; BP_SYST 131; BP_DIAS 54; BP_DIAS 67
[2018-09-15] MEDS: AMLODIPINE BESYLATE 5 MG TABLET PO SCH (17:47)
[2018-09-15] MEDS: INSULIN REGULAR, HUMAN 100 UNIT/ML 3 ML VIAL SQ PRN ×2 (17:49→22:37)
--- NOTE | 2018-09-15 19:20 | NUR ---
MS RN CLOSING NOTES ALL NEEDS WERE ATTENDED AND ANTICIPATED FOR. PT KEPT CLEAN, DRY, AND COMFORTABLE. PT ON ROOM AIR AND TOLERATING WELL. IV REMAINS INTACT. CURRENTLY H/L. IV HAS BEEN FLUSHED. BED KEPT IN LOW, LOCKED POSITION, AND SIDE RAILS X 2 UP. NO ACUTE CHANGES THROUGHOUT SHIFT. ENDORSED TO PM NURSE FOR DAVID.
--- NOTE | 2018-09-15 19:25 | NUR ---
MS/RN OPENING NOTES PT RECEIVED ASLEEP, OPENS EYES TO NAME AND TOUCH. MARTINIQUAIS SPEAKING. ON ROOM AIR, BREATHING EVEN AND UNLABORED. NO S/S OF SOB OR PAIN, IN NO ACUTE DISTRESS AT THIS TIME. IV TO RFA PATENT AND INTACT. HOB ELEVATED. BED IN LOW/LOCKED POSITION WITH CALL LIGHT IN REACH, BILAT. SIDE RAILS UP. WILL CONTINUE TO MONITOR
[2018-09-15 20:00] VITALS: BP 124/72
[2018-09-15] MEDS: ATORVASTATIN 40 MG TABLET PO SCH (22:30)
--- NOTE | 2018-09-15 22:30 | NUR ---
MS/RN NOTES PT'S DAUGHTER LISA AT BEDSIDE. UPDATES PROVIDED. EXPLAINED TO PT AND PT VERBALIZED UNDERSTANDING OF PLAN OF CARE. NO NEEDS EXPRESSED AT THIS TIME. ASKED FAMILY TO TELL PT TO USE CALL LIGHT FOR ASSISTANCE TO BATHROOM. PT VERBALIZED UNDERSTANDING. WILL CONTINUE TO MONITOR
--- NOTE | 2018-09-16 02:30 | NUR ---
MS/RN NOTES PT ROUNDING PERFORMED. PT SLEEPING AND IN NO ACUTE DISTRESS. BREATHING EVEN AND UNLABORED. WILL CONTINUE TO MONITOR
[2018-09-16 04:00] VITALS: BP 143/71
--- NOTE | 2018-09-16 06:48 | NUR ---
MS/RN CLOSING NOTES PT ASLEEP, OPENS EYES TO NAME. ON ROOM AIR, BREATHING EVEN AND UNLABORED. NO SOB OR PAIN, IN NO ACUTE DISTRES. NO SIGNIFICANT CHANGES OVERNIGHT. IV TO RFA PATENT AND INTACT. SLEPT WELL DURING SHIFT. ALL NEEDS MET. BED REMAINS IN LOW/LOCKED POSITION WITH HOB ELEVATED AND BILAT. UPPER SIDE RAILS IN PLACE. WILL ENDORSE TO DAY SHIFT RN DAVID.
--- NOTE | 2018-09-16 07:25 | NUR ---
RN OPENING NOTES RECEIVED REPORT FROM GLUING MACHINE OPERATOR AUTOMATIC. PT IS STATING THAT SHE HAD A HARD NIGHT SLEEPING. PT IS A&OX4 POLISH SPEAKING ONLY. PT HAS RFA 22 GAUGE SL. PT IN BED, BED IS LOCKED AND IN LOWEST POSITION WITH CALL LIGHT WITH IN REACH. DENIES ANY PAIN OR SOB. WILL CONTINUE TO MONITOR.
[2018-09-16 08:00] VITALS: BP 141/70
--- NOTE | 2018-09-16 08:00 | NUR ---
PT REFUSING INSULIN 2 UNITS. BLOOD SUGAR 147.
[2018-09-16] MEDS: BLOOD SUGAR DIAGNOSTIC 1 EACH STRIP IN SCH ×4 (08:14→22:32)
[2018-09-16] MEDS: LEVOTHYROXINE SODIUM 75 MCG TABLET PO SCH (08:14)
[2018-09-16] MEDS: PANTOPRAZOLE 40 MG TABLET.DR PO SCH (08:14)
[2018-09-16] MEDS: CARVEDILOL 3.125 MG TABLET PO SCH (08:14)
[2018-09-16] MEDS: CEFTRIAXONE 1 G in IV D5W 50 ML IV SCH (08:15)
[2018-09-16 12:00] VITALS: BP 141/70
--- NOTE | 2018-09-16 12:37 | NUR ---
RN NOTES PT JB NATALIE SAYS SHE ONLY DOES IT ONE TIME AT HOUSE AND DOES NOT WANT MORE THAN ONE TIME A DAY.
[2018-09-16 16:00] VITALS: BP 147/77
[2018-09-16] MEDS: INSULIN REGULAR, HUMAN 100 UNIT/ML 3 ML VIAL SQ PRN ×2 (17:58→22:39)
[2018-09-16] MEDS: AMLODIPINE BESYLATE 5 MG TABLET PO SCH (18:32)
--- NOTE | 2018-09-16 19:25 | NUR ---
MS RN NOTES RECEIVED OUT OF BED,SHE'S IN THE RESTROOM.ALERT ORIENTED X3,SPEAK [place] CITIZEN ONLY,FAMILY MEMBERS AT BEDSIDE.SALINE LOCK RIGHT FORE ARM INTACT AND PATENT.DENIES DISCOMFORTS AT THE MOMENT,AMBULATE WITH STEADY GAIT.CALL LIGHT IN REACH,NEEDS ANTICIPATED.
--- NOTE | 2018-09-16 19:30 | NUR ---
GAVE REPORT TO BLUEPRINTING MACHINE OPERATOR RN. PT DENIES ANY SOB OR PAIN AT PRESET MOMENT. FAMILY AT BEDSIDE. PT SITTING IN CHAIR. WITH CALL LIGHT IN REACH. PT IS A&OX3 GUAT[place]ALAN SPEAKING ONLY. WILL ENDORSE CONTINUITY OF CARE TO BLUEPRINTING MACHINE OPERATOR RN.
[2018-09-16 20:00] VITALS: BP 139/66
[2018-09-16 20:06] VITALS: BP 139/66
[2018-09-16] MEDS: ATORVASTATIN 40 MG TABLET PO SCH (21:37)
[2018-09-16] MEDS: ASPIRIN 81 MG TAB.CHEW PO SCH (22:32)
--- NOTE | 2018-09-16 22:47 | NUR ---
MS RN NOTES ACCU-CHECK BLOOD SUGAR CHECK 263,COVERED WITH HUMULIN R 6 UNITS PER SLIDING SCALE.SNACKS PROVIDED AT BEDSIDE.
[2018-09-17] MEDS: ENOXAPARIN SODIUM 30 MG/0.3 ML DISP.SYRIN SQ SCH (00:38)
--- NOTE | 2018-09-17 01:00 | NUR ---
MS RN NOTES SLEEPING,KEPT WARM AND COMFORTABLE.
[2018-09-17 04:00] VITALS: BP 150/65
--- NOTE | 2018-09-17 06:07 | NUR ---
MS RN NOTES SLEPT WELL AT NIGHT,DENIES DISCOMFORTS,FAMILY REFUSED NEPHRECTOMY.CONTINUE WITH CURRENT PLAN OF TREATMENT.TO CONTINUE WITH ASA [address] PIPER.IN NO ACUTE DISTRESS.WILL ENDORSE TO DAY NURSE FOR DAVID.
--- NOTE | 2018-09-17 07:28 | NUR ---
RN MS OPENING NOTES RECEIVED BEDSIDE REPORT FROM NOC SHIFT PT SLEEPING. ABLE TO AROUSE WITH VOICE AND TOUCH A&OX4 [place]ER[place] LEONE[place] SPEAKING ONLY. PT HAS RFA [address] GAU[address] SL.SAFETY PRECAUTIONS IN PLACE , BED IS LOCKED AND IN LOWEST POSITION WITH CALL LIGHT WITH IN REACH. DENIES ANY PAIN OR SOB. WILL CONTINUE TO MONITOR.
[2018-09-17] MEDS: BLOOD SUGAR DIAGNOSTIC 1 EACH STRIP IN SCH (07:36)
[2018-09-17 08:00] VITALS: BP 143/85
[2018-09-17] MEDS: LEVOTHYROXINE SODIUM 75 MCG TABLET PO SCH (08:04)
[2018-09-17] MEDS: PANTOPRAZOLE 40 MG TABLET.DR PO SCH (08:04)
[2018-09-17] MEDS: ASPIRIN 81 MG TAB.CHEW PO SCH (08:04)
[2018-09-17] MEDS: INSULIN REGULAR, HUMAN 100 UNIT/ML 3 ML VIAL SQ PRN (08:05)
[2018-09-17] MEDS: CEFTRIAXONE 1 G in IV D5W 50 ML IV SCH (08:13)
--- NOTE | 2018-09-17 12:09 | NUR ---
TEACHER OF FAMILY AND CONSUMER SCIENCE NOTES PATIENT DAUGHTER AT BEDSIDE ALL EXIT CARE UTILIZED. PHOTOS TAKEN IV REMOVED CATH INTACT. REFUSED WHEELCHAIR
== END 2018-09-17 12:05 | disposition home or self-care (01) | DRG 871 ==
LOC: ER 16:29 → TELE1 19:57 → MEDSG1 09-11 08:30
PROVIDERS: ADMIT Family Medicine; ATTEND Family Medicine
DX: A41.9 Sepsis, unspecified organism (principal); N17.0 Acute kidney failure with tubular necrosis; N39.0 Urinary tract infection, site not specified; I50.42 Chronic combined systolic (congestive) and diastolic (congestive) heart failure; I13.0 Hypertensive heart and chronic kidney disease with heart failure and stage 1 through stage 4 chronic kidney disease, or unspecified chronic kidney disease; G93.40 Encephalopathy, unspecified; N13.6 Pyonephrosis; E11.22 Type 2 diabetes mellitus with diabetic chronic kidney disease; I25.10 Atherosclerotic heart disease of native coronary artery without angina pectoris; Z86.73 Personal history of transient ischemic attack (TIA), and cerebral infarction without residual deficits; D63.8 Anemia in other chronic diseases classified elsewhere; E03.9 Hypothyroidism, unspecified; E78.5 Hyperlipidemia, unspecified; E86.0 Dehydration; F32.9 Major depressive disorder, single episode, unspecified; G30.9 Alzheimer's disease, unspecified; F02.80 Dementia in other diseases classified elsewhere, unspecified severity, without behavioral disturbance, psychotic disturbance, mood disturbance, and anxiety; R32 Unspecified urinary incontinence; K21.9 Gastro-esophageal reflux disease without esophagitis; M81.0 Age-related osteoporosis without current pathological fracture; Z79.84 Long term (current) use of oral hypoglycemic drugs; K59.00 Constipation, unspecified; K29.70 Gastritis, unspecified, without bleeding; Z87.440 Personal history of urinary (tract) infections; Z88.0 Allergy status to penicillin; I25.2 Old myocardial infarction; Z95.5 Presence of coronary angioplasty implant and graft; E11.42 Type 2 diabetes mellitus with diabetic polyneuropathy; F43.10 Post-traumatic stress disorder, unspecified; N18.9 Chronic kidney disease, unspecified; R65.20 Severe sepsis without septic shock; N28.1 Cyst of kidney, acquired; I35.0 Nonrheumatic aortic (valve) stenosis; G47.00 Insomnia, unspecified; K76.89 Other specified diseases of liver; B96.20 Unspecified Escherichia coli [E. coli] as the cause of diseases classified elsewhere; I25.119 Atherosclerotic heart disease of native coronary artery with unspecified angina pectoris
CPT/HCPCS: 36415; 71045-TC; 76700-TC; 76856-TC; 78707-TC; 80048-TC; 80053-TC; 80076-TC; 81000-TC; 82378; 82962-TC; 83605-TC; 83735-TC; 84100-TC; 84443-TC; 84484-TC; 85025-TC; 85652-TC; 85730-TC; 86140-TC; 86706; 86709-TC; 86803; 86850-TC; 87040-TC; 87081-TC; 87086-TC; 87186-TC; 93307-TC; 97116-TC; 97530-TC; A4216; A9562; G0378; J0696; J1650; J1815; J1956; J2060; J2185; J2916; J7030; J7040; J7050; J7060